=== PATIENT | male | born 1930 | race Caucasian/White ===

== ENCOUNTER → 2016-11-13 14:04 | Emergency (ER) | payer MEDICARE, BC ==
[~2016-11-13 14:04] MED LIST: ACETAMINOPHEN PO; DOCUSATE SODIU100 MG PO; FAMOTIDINE PO; FLOMAX0.4 M1 PO; IRON325 ( 651 PO; NO MEDICATIONS; PROSCAR5 MG PO; REMERON15 MG PO; SODIUM BICARBO650 MG PO
== END | disposition left against medical advice (07) ==
LOC: CED 14:04
DX: Z53.21 Procedure and treatment not carried out due to patient leaving prior to being seen by health care provider (principal)